=== PATIENT | female | born 1950 | race Caucasian/White ===

== ENCOUNTER → 2016-08-16 | Outpatient (CLI) | payer BC ==
--- NOTE | 2016-08-16 10:01 | Diagnostic Imaging Report ---
PROCEDURE: US abdomen complete. TECHNIQUE: Multiple real-time grayscale images were obtained over the abdomen in various projections. INDICATION: Elevated creatinine with heart failure and chronic renal disease. FINDINGS: The liver parenchyma appears normal. The bile ducts are not dilated. The common bile duct measures 4 mm. The portal and hepatic vein are patent. Gallbladder appears normal with no gallstones or wall thickening. Pancreas appears normal. Spleen appears normal. Aorta shows atherosclerotic disease without evidence of aneurysm. The inferior vena cava appears normal. The right kidney measures 9.5 x 4.3 x 4.2 cm. No evidence for renal obstruction. There is mild thinning of the renal cortex. There is good preservation of cortical medullary junction. The left kidney measures 9.9 x 5.2 x 4.3 cm. No hydronephrosis. Thinning of the cortex noted. Good preservation of cortical medullary junction. IMPRESSION: 1. No acute renal abnormalities demonstrated. 2. The remainder of the abdomen appears normal with mild atherosclerotic changes of the aorta. Dictated by: Dictated on workstation # [id number]
== END ==
LOC: RAD 08:42
PROVIDERS: ATTEND Specialist
DX: N18.4 Chronic kidney disease, stage 4 (severe) (principal)
CPT/HCPCS: 76700

== ENCOUNTER → 2016-08-21 | Outpatient (REF) | payer BC ==
[2016-08-21 08:36] LABS: ALBUMIN 4.2 g/dL (3.4-5.0); ANION GAP 15.1 MEQ/L (3-15)
== END ==
LOC: LAB 08:11
PROVIDERS: ATTEND Family Medicine
DX: N18.4 Chronic kidney disease, stage 4 (severe) (principal)
CPT/HCPCS: 80069

== ENCOUNTER → 2016-08-28 | Outpatient (REF) | payer BC ==
[2016-08-28 08:37] LABS: ALBUMIN 4.1 g/dL (3.4-5.0); ANION GAP 13.8 MEQ/L (3-15)
== END ==
LOC: LAB 08:11
PROVIDERS: ATTEND Family Medicine
DX: N18.4 Chronic kidney disease, stage 4 (severe) (principal)
CPT/HCPCS: 80069